=== PATIENT | male | born 1965 | race African-American/Black ===

== ENCOUNTER 2018-12-30 08:02 | Emergency (ER) | payer BC, OTHER ==
[~2018-12-30] VITALS: Ht 175.3 cm; Wt 110.4 kg
--- NOTE | 2018-12-30 08:17 | NUR ---
First contact with pt. Per pt, "I just got promoted and I am in the process of moving here from [place], [place]. I am staying up at [facility] now. I ran out of my blood pressure meds, I am in the process of finding a new doctor. I am normally the kind of abdoulaye that runs or walks 4 miles a day. I noticed last night when I got to the top of the stairs where I am staying I was out of breath. I came here today and you guys checked my bp and it's high." Pt connected to all monitors. NADN. Pt AOx4, Unlabored respirations equal bilaterally, pt is hypertensive with BP at 200/113.
[2018-12-30] MEDS ORDERED: SODIUM CHLORIDE FLUSH 10ML SYR IVF ONE (08:30)
--- NOTE | 2018-12-30 08:35 | NUR ---
Went to provide pt medication per EMAR. Pt not in room at this time. Pt transported to imaging on [facility].
[2018-12-30 08:37] LABS: BASOPHILS # (AUTO) 0.11 x10^3/uL (0-0.1); BASOPHILS % (AUTO) 1 % (0-1); EOSINOPHILS # (AUTO) 0.19 x10^3/uL (0-0.4); EOSINOPHILS % (AUTO) 2 % (1-7); LYMPHOCYTES # (AUTO) 3.48 x10^3/uL (1-3.4); LYMPHOCYTES % (AUTO) 38 % (22-44); MD NO; MEAN CORPUSCULAR HEMOGLOBIN 31.1 pg (27.5-34.5); MEAN CORPUSCULAR HGB CONC 33.3 g/dL (33.2-36.2); MEAN CORPUSCULAR VOLUME 93.3 fL (81-97); MEAN PLATELET VOLUME 8.8 fL (7.4-10.4); MONOCYTES # (AUTO) 0.72 x10^3/uL (0.2-0.8); MONOCYTES % (AUTO) 8 % (2-9); NEUTROPHILS % (AUTO) 51 % (42-75); PLATELET COUNT 267 x10^3/uL (130-400); RED BLOOD COUNT 5.35 x10^6/uL (4.38-5.82); RED CELL DISTRIBUTION WIDTH 13.9 % (9.4-14.8)
--- NOTE | 2018-12-30 08:37 | NUR ---
Pt back to room from imaging. Provided pt medication per EMAR.
[2018-12-30 08:49] LABS: ALBUMIN 4.3 g/dL (3.4-5.0); ANION GAP 6 mmol/L (5-15); CALCIUM 9.3 mg/dL (8.5-10.1); CHLORIDE 106 mmol/L (98-107)
[2018-12-30 08:52] LABS: TROPONIN I 0.016 ng/mL (0.000-0.045)
[2018-12-30] MEDS ORDERED: LISI-170 PO (09:06)
[2018-12-30 10:35] VITALS: BP 155/104
--- NOTE | 2018-12-30 11:00 | NUR ---
Patient/Caregiver given discharge instructions and they have confirmed that they understand the instructions. Patient ambulatory with steady gait.
== END 2018-12-30 11:01 | disposition home or self-care (01) ==
LOC: ED 08:51
DX: I10 Essential (primary) hypertension (principal); R06.00 Dyspnea, unspecified
CPT/HCPCS: 36415; 71046; 80048; 82040; 83880; 84484; 85025; 93005; 99284